=== PATIENT | female | born 1970 | race Caucasian/White ===

== ENCOUNTER 2018-05-30 11:06 | Emergency (ER) | payer OTHER, SELFPAY ==
[2018-05-30] VITALS (7 sets, daily range): BP systolic 103–135; BP diastolic 65–84; PULSE 57–75; RESP 12–16; TEMP 36.7; O2SAT 95–99; BMI 31.1
--- NOTE | 2018-05-30 11:28 | DI.RAD.S_ITS ---
PROCEDURE: XR CHEST 1V INDICATIONS: chest pain TECHNIQUE: One view of the chest was acquired. COMPARISON: [facility], , CHEST 2VW, 09/26/2008, 2:32. FINDINGS: Surgical changes and devices: None. Lungs and pleura: Lungs are clear. No pleural effusions or pneumothorax. Mediastinum: Mediastinal contours appear normal. Heart size is normal. Bones and chest wall: No suspicious bony lesions. Overlying soft tissues appear unremarkable. IMPRESSION: Stable chest. No acute cardiopulmonary process is evident. Dictated by: Dmitriy Sanchez M.D. on 05/30/2018 at 10:44 Approved by: Dmitriy Sanchez M.D. on 05/30/2018 at 10:44
[2018-05-30 11:40] LABS: Prothrombin Time 11.7 SECONDS (10.1-12.7)
[2018-05-30 11:43] LABS: PTT Partial Thromboplastin Tim 33 SECONDS (26.4-36.2)
[2018-05-30 11:44] LABS: Alanine Aminotransferase 42 IU/L (9-52); Albumin 4.6 g/dL (3.5-5.0); Albumin Globulin Ratio 1.3 (1.0-2.8); Alkaline Phosphatase 109 U/L (38-126); Aspartate Aminotransferase 38 IU/L (14-36); BUN Creatinine Ratio 17.3 (6-22); Bilirubin Total 0.4 mg/dL (0.2-1.3); Blood Urea Nitrogen 19 mg/dL (7-17); Calcium 9.6 mg/dL (8.4-10.2); Carbon Dioxide 28 mmol/L (22-32); Chloride 103 mmol/L (98-107); Creatine Kinase 89 U/L (30-135); Estimated Glomerular Filt Rate 52.8 mL/min (>60); Globulin 3.5 g/dL (1.7-4.1); Glucose 107 mg/dL (70-100); HEMOLYSIS 27 (0-50); Lipase 75 U/L (23-300); Sodium 139 mmol/L (137-145); Total Protein 8.1 g/dL (6.3-8.2)
[2018-05-30 11:50] LABS: Add Manual Diff / Slide Review NO; Basophils Absolute Auto 0 /uL (0-100); Basophils Percent Auto 0.7 % (0-2); Eosinophils Absolute Auto 200 /uL (0-450); Eosinophils Percent Auto 2.3 % (2-4); Hematocrit 38.3 % (36-46); Hemoglobin 12.8 g/dL (12.0-16.0); Lymphocytes Absolute Auto 2100 /uL (1100-4500); Lymphocytes Percent Auto 30.7 % (25-40); Mean Corpuscular HGB Conc 33.4 % (30-36); Mean Corpuscular Hemoglobin 30.7 PG (26-34); Monocytes Absolute Auto 600 /uL (0-900); Monocytes Percent Auto 8.4 % (3-14); Neutrophils Absolute Auto 4000 /uL (1500-7000); Neutrophils Percent Auto 57.9 % (50-75); Platelet Count 325 X10^3/uL (150-400); Red Blood Cell Count 4.16 X10^6/uL (4.0-5.2); Red Cell Distribution Width 13.8 % (11.6-14.8); White Blood Cell Count 6.9 X10^3/uL (4.5-11.0)
[2018-05-30 11:55] LABS: Troponin I < 0.012 ng/mL (0.01-0.034)
--- NOTE | 2018-05-30 12:09 | ED.CHESTPAIN ---
HPI - Chest Pain <TORRES Davis - Last Filed: 05/30/18 21:19> General Chief Complaint: Chest Pain Stated Complaint: chest pain on left side / back pain Time Seen by Provider: 05/30/18 12:07 Source: patient Mode of arrival: ambulatory Limitations: no limitations History of Present Illness HPI narrative: 47-year-old female with history of epilepsy and is a nonsmoker for complaint having a chest pain into her left anterior chest that radiated into her left ribcage area started earlier this morning. She denies any nausea or vomiting. No diaphoresis. She denies any history of cardiac problems. She reports that she feels better at this time frame that she did earlier today. Pain is reproducible with palpation to the area. She does report that she had a good work out. Two days ago where she was doing P 90 x. no trauma to the area. No shortness of breath she is able speak full sentences. No other concerns or complaints at this time frame. complaint: chest pain Related Data Allergies Allergy/AdvReac Type Severity Reaction Status Date / Time No Known Drug Allergies Allergy Verified 05/30/18 11:16 Review of Systems <TORRES Davis - Last Filed: 05/30/18 21:19> Constitutional Denies chills, Denies fever(s), Denies lethargy and Denies weakness Eyes Denies change in vision, Denies eye discharge, Denies irritation and Denies loss of vision ENT Ears, Nose, Mouth, and Throat: Denies change in voice, Denies neck pain and Denies sore throat Cardiovascular Reports chest pain, Denies dyspnea and Denies dyspnea on exertion Respiratory Denies cough, Denies dyspnea, Denies dyspnea on exertion and Denies wheezing Gastrointestinal Gastrointestinal: Denies abdominal pain, Denies change in bowel habits, Denies diarrhea, Denies nausea and Denies vomiting Musculoskeletal Denies neck pain Integumentary/Breasts Denies pruritus, Denies erythema, Denies rash and Denies wounds Neurologic Denies confusion, Denies loss of vision and Denies weakness Psychiatric Denies anxiety, Denies confusion, Denies depression, Denies homicidal ideation and Denies suicidal ideation Hematologic/Lymphatic Denies easy bruising Allergic/Immunologic Denies wheezing Exam <TORRES Davis - Last Filed: 05/30/18 21:19> Initial Vital Signs Initial Vital Signs: Vital Signs Temperature 98.0 F 05/30/18 11:16 Pulse Rate 75 05/30/18 11:16 Respiratory Rate 16 05/30/18 11:16 Blood Pressure 135/70 05/30/18 11:16 Pulse Oximetry 95 05/30/18 11:16 Const General: cooperative and well developed Nutritional Appearance: well nourished Orientation: alert, awake, oriented x3 and not confused HENMT Mouth: oral mucosae normal and moist mucous membranes Eyes Conjunctivae: conjunctivae normal Sclera: sclerae normal Pupils: PERRL EOM: EOM intact bilaterally Chest Chest: normal inspection of the chest Other: Pain on palpation to anterior chest wall and into left lateral rib cage area. No signs of trauma. Resp Effort & Inspection: normal respiratory effort, able to speak in complete sentences, no respiratory distress and no use of accessory muscles Auscultation: clear to auscultation bilaterally, no rales, no rhonchi and no wheezes Cardio Rate: regular rate Rhythm: regular rhythm Heart Sounds: no click, no gallops, no murmurs and no rubs Skin General: no rashes or lesions noted, No jaundice and No petechiae Neuro General: alert, oriented x3, gait normal and no focal motor deficits Speech: speech normal <Adele Hinton DO - Last Filed: 06/02/18 07:15> Initial Vital Signs Initial Vital Signs: Vital Signs Temperature 98.0 F 05/30/18 11:16 Pulse Rate 75 05/30/18 11:16 Respiratory Rate 16 05/30/18 11:16 Blood Pressure 135/70 05/30/18 11:16 Pulse Oximetry 95 05/30/18 11:16 Course <TORRES Davis - Last Filed: 05/30/18 21:19> Orders Ordered: ED Orders 05/30/18 12:48 Urine Culture Stat Urine Microscopic Stat 05/30/18 13:30 Trop I [Troponin I] Stat Vital Signs - 8 hr 05/30/18 13:30 05/30/18 14:00 05/30/18 14:30 Pulse Rate 59 L 58 L 57 L Respiratory Rate 14 14 16 Blood Pressure [Left Arm] 127/84 105/75 103/65 Pulse Oximetry 96 98 97 <Adele Hinton DO - Last Filed: 06/02/18 07:15> Orders Ordered: ED Orders 05/30/18 12:48 Urine Culture Stat Urine Microscopic Stat 05/30/18 13:30 Trop I [Troponin I] Stat Vital Signs - 8 hr 05/30/18 13:30 05/30/18 14:00 05/30/18 14:30 Pulse Rate 59 L 58 L 57 L Respiratory Rate 14 14 16 Blood Pressure [Left Arm] 127/84 105/75 103/65 Pulse Oximetry 96 98 97 MDM - Chest Pain <TORRES Davis - Last Filed: 05/30/18 21:19> Lab Data Result diagrams: 05/30/18 11:30 05/30/18 11:30 Lab Results 05/30/18 05/30/18 05/30/18 Range/Units 11:30 11:30 11:30 WBC 6.9 (4.5-11.0) X10^3/uL RBC 4.16 (4.0-5.2) X10^6/uL Hgb 12.8 (12.0-16.0) g/dL Hct 38.3 (36-46) % MCV 92.0 (80-100) fL MCH 30.7 (26-34) PG MCHC 33.4 (30-36) % RDW 13.8 (11.6-14.8) % Plt Count 325 (150-400) X10^3/uL Neut % (Auto) 57.9 (50-75) % Lymph % (Auto) 30.7 (25-40) % Cedar % (Auto) 8.4 (3-14) % Eos % (Auto) 2.3 (2-4) % Baso % (Auto) 0.7 (0-2) % Neut # (Auto) 4000 (0228-1402) /uL Lymph # (Auto) 2100 (5441-8636) /uL Cedar # (Auto) 600 (0-900) /uL Eos # (Auto) 200 (0-450) /uL Baso # (Auto) 0 (0-100) /uL PT 11.7 (10.1-12.7) SECONDS INR 1.0 (0.9-1.3) APTT 33 (26.4-36.2) SECONDS D-Dimer (<230) ng/mL Sodium 139 (137-145) mmol/L Potassium 4.0 (3.4-5.1) mmol/L Chloride 103 (98-107) mmol/L Carbon Dioxide 28 (22-32) mmol/L BUN 19 H (7-17) mg/dL Creatinine 1.10 H (0.52-1.04) mg/dL Estimated GFR 52.8 L (>60) mL/min BUN/Creatinine Ratio 17.3 (6-22) Glucose 107 H (70-100) mg/dL Calcium 9.6 (8.4-10.2) mg/dL Total Bilirubin 0.4 (0.2-1.3) mg/dL AST 38 H (14-36) IU/L ALT 42 (9-52) IU/L Alkaline Phosphatase 109 (38-126) U/L Total Creatine Kinase 89 (30-135) U/L CK-MB (CK-2) TNP CK-MB (CK-2) Rel Index TNP Troponin I < 0.012 (0.01-0.034) ng/mL Total Protein 8.1 (6.3-8.2) g/dL Albumin 4.6 (3.5-5.0) g/dL Globulin 3.5 (1.7-4.1) g/dL Albumin/Globulin Ratio 1.3 (1.0-2.8) Lipase 75 (23-300) U/L Urine RBC (0-5/HPF) Urine WBC (0-5/HPF) Ur Squamous Epith Cells Amorphous Sediment Urine Bacteria (None) Ur Culture Indicated? 05/30/18 05/30/18 05/30/18 Range/Units 11:32 12:48 13:30 WBC (4.5-11.0) X10^3/uL RBC (4.0-5.2) X10^6/uL Hgb (12.0-16.0) g/dL Hct (36-46) % MCV (80-100) fL MCH (26-34) PG MCHC (30-36) % RDW (11.6-14.8) % Plt Count (150-400) X10^3/uL Neut % (Auto) (50-75) % Lymph % (Auto) (25-40) % Cedar % (Auto) (3-14) % Eos % (Auto) (2-4) % Baso % (Auto) (0-2) % Neut # (Auto) (2303-4983) /uL Lymph # (Auto) (0901-5207) /uL Cedar # (Auto) (0-900) /uL Eos # (Auto) (0-450) /uL Baso # (Auto) (0-100) /uL PT (10.1-12.7) SECONDS INR (0.9-1.3) APTT (26.4-36.2) SECONDS D-Dimer 298 H (<230) ng/mL Sodium (137-145) mmol/L Potassium (3.4-5.1) mmol/L Chloride (98-107) mmol/L Carbon Dioxide (22-32) mmol/L BUN (7-17) mg/dL Creatinine (0.52-1.04) mg/dL Estimated GFR (>60) mL/min BUN/Creatinine Ratio (6-22) Glucose (70-100) mg/dL Calcium (8.4-10.2) mg/dL Total Bilirubin (0.2-1.3) mg/dL AST (14-36) IU/L ALT (9-52) IU/L Alkaline Phosphatase (38-126) U/L Total Creatine Kinase (30-135) U/L CK-MB (CK-2) CK-MB (CK-2) Rel Index Troponin I < 0.012 (0.01-0.034) ng/mL Total Protein (6.3-8.2) g/dL Albumin (3.5-5.0) g/dL Globulin (1.7-4.1) g/dL Albumin/Globulin Ratio (1.0-2.8) Lipase (23-300) U/L Urine RBC None seen (0-5/HPF) Urine WBC 1-5/hpf (0-5/HPF) Ur Squamous Epith Cells 1-5 /hpf Amorphous Sediment 2+ Urine Bacteria None seen (None) Ur Culture Indicated? Specimen cultured Point of Care Testing Test Results Negative Urine Dip Bedside Urine Glucose Negative Bedside Urine Bilirubin - Negative Bedside Urine Ketone - Negative Urine Specific [place] 1.025 Bedside Urine Occult Blood - Negative Bedside Urine pH 5.5 Bedside Urine Protein - Negative Bedside Urine Urobilinogen - Negative Bedside Urine Nitrite - Negative Bedside Urine Leukocytes ++ 125 Esterase Imaging Data Chest x-ray: Radiologist's impression: [address] [address] XRay Report Signed Patient: Gabriela Castro#: [id number] : 1970Acct:[id number] Age/Sex: 47 / FDate of Service: 05/30/18 Loc: ED Accession Number: [id number] Procedure: XR chest 1V Ordering Provider: Adele Hinton D.O. PROCEDURE: XR CHEST 1V INDICATIONS: chest pain TECHNIQUE: One view of the chest was acquired. COMPARISON: [facility], , CHEST 2VW, 09/26/2008, 2:32. FINDINGS: Surgical changes and devices: None. Lungs and pleura: Lungs are clear. No pleural effusions or pneumothorax. Mediastinum: Mediastinal contours appear normal. Heart size is normal. Bones and chest wall: No suspicious bony lesions. Overlying soft tissues appear unremarkable. IMPRESSION: Stable chest. No acute cardiopulmonary process is evident. Dictated by: Dmitriy Sanchez M.D. on 05/30/2018 at 10:44 Approved by: Dmitriy Sanchez M.D. on 05/30/2018 at 10:44 ECG Data Interpretation: EKG shows normal sinus rhythm with no ST elevation or depression. No ectopy. Ventricular rate of 61. Pr interval 144. QRS duration 93. QTC of 404. MDM Narrative Medical decision making narrative: CBC was obtained and was unremarkable. Chem panel shows GFR 52.8 and creatinine at 1.1. Patient states that this is not a new finding for her. Otherwise CMP was unremarkable. EKG shows sinus rhythm with no ST elevation or depression. No ectopy. Chest x-ray was obtained was unremarkable. two sets of cardiac enzymes were obtained and were both negative. Pain is reproducible on palpation to the chest wall. Signs and symptoms presents as chest wall pain. Rest area. She is instructed not to do any strenuous activity until pain resolves. [id number] ibuprofen as needed for any discomfort. Follow up with primary care provider. Return emergency room for any worsening symptoms. <Adele Hinton DO - Last Filed: 06/02/18 07:15> Lab Data Lab Results 05/30/18 05/30/18 05/30/18 Range/Units 11:30 11:30 11:30 WBC 6.9 (4.5-11.0) X10^3/uL RBC 4.16 (4.0-5.2) X10^6/uL Hgb 12.8 (12.0-16.0) g/dL Hct 38.3 (36-46) % MCV 92.0 (80-100) fL MCH 30.7 (26-34) PG MCHC 33.4 (30-36) % RDW 13.8 (11.6-14.8) % Plt Count 325 (150-400) X10^3/uL Neut % (Auto) 57.9 (50-75) % Lymph % (Auto) 30.7 (25-40) % Cedar % (Auto) 8.4 (3-14) % Eos % (Auto) 2.3 (2-4) % Baso % (Auto) 0.7 (0-2) % Neut # (Auto) 4000 (5006-5533) /uL Lymph # (Auto) 2100 (5345-0957) /uL Cedar # (Auto) 600 (0-900) /uL Eos # (Auto) 200 (0-450) /uL Baso # (Auto) 0 (0-100) /uL PT 11.7 (10.1-12.7) SECONDS INR 1.0 (0.9-1.3) APTT 33 (26.4-36.2) SECONDS D-Dimer (<230) ng/mL Sodium 139 (137-145) mmol/L Potassium 4.0 (3.4-5.1) mmol/L Chloride 103 (98-107) mmol/L Carbon Dioxide 28 (22-32) mmol/L BUN 19 H (7-17) mg/dL Creatinine 1.10 H (0.52-1.04) mg/dL Estimated GFR 52.8 L (>60) mL/min BUN/Creatinine Ratio 17.3 (6-22) Glucose 107 H (70-100) mg/dL Calcium 9.6 (8.4-10.2) mg/dL Total Bilirubin 0.4 (0.2-1.3) mg/dL AST 38 H (14-36) IU/L ALT 42 (9-52) IU/L Alkaline Phosphatase 109 (38-126) U/L Total Creatine Kinase 89 (30-135) U/L CK-MB (CK-2) TNP CK-MB (CK-2) Rel Index TNP Troponin I < 0.012 (0.01-0.034) ng/mL Total Protein 8.1 (6.3-8.2) g/dL Albumin 4.6 (3.5-5.0) g/dL Globulin 3.5 (1.7-4.1) g/dL Albumin/Globulin Ratio 1.3 (1.0-2.8) Lipase 75 (23-300) U/L Urine RBC (0-5/HPF) Urine WBC (0-5/HPF) Ur Squamous Epith Cells Amorphous Sediment Urine Bacteria (None) Ur Culture Indicated? 05/30/18 05/30/18 05/30/18 Range/Units 11:32 12:48 13:30 WBC (4.5-11.0) X10^3/uL RBC (4.0-5.2) X10^6/uL Hgb (12.0-16.0) g/dL Hct (36-46) % MCV (80-100) fL MCH (26-34) PG MCHC (30-36) % RDW (11.6-14.8) % Plt Count (150-400) X10^3/uL Neut % (Auto) (50-75) % Lymph % (Auto) (25-40) % Cedar % (Auto) (3-14) % Eos % (Auto) (2-4) % Baso % (Auto) (0-2) % Neut # (Auto) (1794-4155) /uL Lymph # (Auto) (9315-7475) /uL Cedar # (Auto) (0-900) /uL Eos # (Auto) (0-450) /uL Baso # (Auto) (0-100) /uL PT (10.1-12.7) SECONDS INR (0.9-1.3) APTT (26.4-36.2) SECONDS D-Dimer 298 H (<230) ng/mL Sodium (137-145) mmol/L Potassium (3.4-5.1) mmol/L Chloride (98-107) mmol/L Carbon Dioxide (22-32) mmol/L BUN (7-17) mg/dL Creatinine (0.52-1.04) mg/dL Estimated GFR (>60) mL/min BUN/Creatinine Ratio (6-22) Glucose (70-100) mg/dL Calcium (8.4-10.2) mg/dL Total Bilirubin (0.2-1.3) mg/dL AST (14-36) IU/L ALT (9-52) IU/L Alkaline Phosphatase (38-126) U/L Total Creatine Kinase (30-135) U/L CK-MB (CK-2) CK-MB (CK-2) Rel Index Troponin I < 0.012 (0.01-0.034) ng/mL Total Protein (6.3-8.2) g/dL Albumin (3.5-5.0) g/dL Globulin (1.7-4.1) g/dL Albumin/Globulin Ratio (1.0-2.8) Lipase (23-300) U/L Urine RBC None seen (0-5/HPF) Urine WBC 1-5/hpf (0-5/HPF) Ur Squamous Epith Cells 1-5 /hpf Amorphous Sediment 2+ Urine Bacteria None seen (None) Ur Culture Indicated? Specimen cultured Point of Care Testing Test Results Negative Urine Dip Bedside Urine Glucose Negative Bedside Urine Bilirubin - Negative Bedside Urine Ketone - Negative Urine Specific [place] 1.025 Bedside Urine Occult Blood - Negative Bedside Urine pH 5.5 Bedside Urine Protein - Negative Bedside Urine Urobilinogen - Negative Bedside Urine Nitrite - Negative Bedside Urine Leukocytes ++ 125 Esterase Discharge Plan Departure Patient Disposition: Home Clinical Impression: Anterior chest wall pain Discharge Date/Time: 05/30/18 14:54 Interventions: ED Discharge Assessment Last Done: 05/30/18 14:54 Instructions: DI for Atypical Chest Pain Activity Restrictions/Additional Instructions: Laboratory results imaging and EKG today were unremarkable. signs and symptoms presents as chest wall muscular pain. Rest area. No strenuous activity to area until pain is resolved. Gentle [id number] exercises to painful areas to help keep muscles loose. Follow up with her primary care provider. Return emergency room for any worsening symptoms. Referrals: [facility] [Provider Group] <Adele Hinton DO - Last Filed: 06/02/18 07:15> Cosign ED Attending Cosignature Attestation: I was immediately available in the department for consultation. This documentation has been reviewed. Supervised by Adele Hinton DO
[2018-05-30 12:35] LABS: D Dimer 298 ng/mL (<230)
[2018-05-30 12:49] LABS: Bacteria Urine None Seen; RBC Urine None Seen (0-5/HPF)
[2018-05-30 13:04] LABS: Squamous Epithelial Cell Urine 1-5 /HPF; WBC Urine 1-5/HPF (0-5/HPF)
[2018-05-30 13:05] LABS: Amorphous Sediment Urine 2+; Culture Indicated Urine Specimen Cultured
[2018-05-30 14:10] LABS: Troponin I < 0.012 ng/mL (0.01-0.034)
--- NOTE | 2018-05-30 14:28 | ED_ITS ---
HPI - Chest Pain <TORRES Davis - Last Filed: 05/30/18 21:19> General Chief Complaint: Chest Pain Stated Complaint: chest pain on left side / back pain Time Seen by Provider: 05/30/18 12:07 Source: patient Mode of arrival: ambulatory Limitations: no limitations History of Present Illness HPI narrative: 47-year-old female with history of epilepsy and is a nonsmoker for complaint having a chest pain into her left anterior chest that radiated into her left ribcage area started earlier this morning. She denies any nausea or vomiting. No diaphoresis. She denies any history of cardiac problems. She reports that she feels better at this time frame that she did earlier today. Pain is reproducible with palpation to the area. She does report that she had a good work out. Two days ago where she was doing P 90 x. no trauma to the area. No shortness of breath she is able speak full sentences. No other concerns or complaints at this time frame. complaint: chest pain Related Data Allergies Allergy/AdvReac Type Severity Reaction Status Date / Time No Known Drug Allergies Allergy Verified 05/30/18 11:16 Review of Systems <TORRES Davis - Last Filed: 05/30/18 21:19> Constitutional Denies chills, Denies fever(s), Denies lethargy and Denies weakness Eyes Denies change in vision, Denies eye discharge, Denies irritation and Denies loss of vision ENT Ears, Nose, Mouth, and Throat: Denies change in voice, Denies neck pain and Denies sore throat Cardiovascular Reports chest pain, Denies dyspnea and Denies dyspnea on exertion Respiratory Denies cough, Denies dyspnea, Denies dyspnea on exertion and Denies wheezing Gastrointestinal Gastrointestinal: Denies abdominal pain, Denies change in bowel habits, Denies diarrhea, Denies nausea and Denies vomiting Musculoskeletal Denies neck pain Integumentary/Breasts Denies pruritus, Denies erythema, Denies rash and Denies wounds Neurologic Denies confusion, Denies loss of vision and Denies weakness Psychiatric Denies anxiety, Denies confusion, Denies depression, Denies homicidal ideation and Denies suicidal ideation Hematologic/Lymphatic Denies easy bruising Allergic/Immunologic Denies wheezing Exam <TORRES Davis - Last Filed: 05/30/18 21:19> Initial Vital Signs Initial Vital Signs: Vital Signs Temperature 98.0 F 05/30/18 11:16 Pulse Rate 75 05/30/18 11:16 Respiratory Rate 16 05/30/18 11:16 Blood Pressure 135/70 05/30/18 11:16 Pulse Oximetry 95 05/30/18 11:16 Const General: cooperative and well developed Nutritional Appearance: well nourished Orientation: alert, awake, oriented x3 and not confused HENMT Mouth: oral mucosae normal and moist mucous membranes Eyes Conjunctivae: conjunctivae normal Sclera: sclerae normal Pupils: PERRL EOM: EOM intact bilaterally Chest Chest: normal inspection of the chest Other: Pain on palpation to anterior chest wall and into left lateral rib cage area. No signs of trauma. Resp Effort & Inspection: normal respiratory effort, able to speak in complete sentences, no respiratory distress and no use of accessory muscles Auscultation: clear to auscultation bilaterally, no rales, no rhonchi and no wheezes Cardio Rate: regular rate Rhythm: regular rhythm Heart Sounds: no click, no gallops, no murmurs and no rubs Skin General: no rashes or lesions noted, No jaundice and No petechiae Neuro General: alert, oriented x3, gait normal and no focal motor deficits Speech: speech normal <Adele Hinton DO - Last Filed: 06/02/18 07:15> Initial Vital Signs Initial Vital Signs: Vital Signs Temperature 98.0 F 05/30/18 11:16 Pulse Rate 75 05/30/18 11:16 Respiratory Rate 16 05/30/18 11:16 Blood Pressure 135/70 05/30/18 11:16 Pulse Oximetry 95 05/30/18 11:16 Course <TORRES Davis - Last Filed: 05/30/18 21:19> Orders Ordered: ED Orders 05/30/18 12:48 Urine Culture Stat Urine Microscopic Stat 05/30/18 13:30 Trop I [Troponin I] Stat Vital Signs - 8 hr 05/30/18 13:30 05/30/18 14:00 05/30/18 14:30 Pulse Rate 59 L 58 L 57 L Respiratory Rate 14 14 16 Blood Pressure [Left Arm] 127/84 105/75 103/65 Pulse Oximetry 96 98 97 <Adele Hinton DO - Last Filed: 06/02/18 07:15> Orders Ordered: ED Orders 05/30/18 12:48 Urine Culture Stat Urine Microscopic Stat 05/30/18 13:30 Trop I [Troponin I] Stat Vital Signs - 8 hr 05/30/18 13:30 05/30/18 14:00 05/30/18 14:30 Pulse Rate 59 L 58 L 57 L Respiratory Rate 14 14 16 Blood Pressure [Left Arm] 127/84 105/75 103/65 Pulse Oximetry 96 98 97 MDM - Chest Pain <TORRES Davis - Last Filed: 05/30/18 21:19> Lab Data Result diagrams: 05/30/18 11:30 05/30/18 11:30 Lab Results 05/30/18 05/30/18 05/30/18 Range/Units 11:30 11:30 11:30 WBC 6.9 (4.5-11.0) X10^3/uL RBC 4.16 (4.0-5.2) X10^6/uL Hgb 12.8 (12.0-16.0) g/dL Hct 38.3 (36-46) % MCV 92.0 (80-100) fL MCH 30.7 (26-34) PG MCHC 33.4 (30-36) % RDW 13.8 (11.6-14.8) % Plt Count 325 (150-400) X10^3/uL Neut % (Auto) 57.9 (50-75) % Lymph % (Auto) 30.7 (25-40) % [place] % (Auto) 8.4 (3-14) % Eos % (Auto) 2.3 (2-4) % Baso % (Auto) 0.7 (0-2) % Neut # (Auto) 4000 (7110-7550) /uL Lymph # (Auto) 2100 (5748-1404) /uL [place] # (Auto) 600 (0-900) /uL Eos # (Auto) 200 (0-450) /uL Baso # (Auto) 0 (0-100) /uL PT 11.7 (10.1-12.7) SECONDS INR 1.0 (0.9-1.3) APTT 33 (26.4-36.2) SECONDS D-Dimer (<230) ng/mL Sodium 139 (137-145) mmol/L Potassium 4.0 (3.4-5.1) mmol/L Chloride 103 (98-107) mmol/L Carbon Dioxide 28 (22-32) mmol/L BUN 19 H (7-17) mg/dL Creatinine 1.10 H (0.52-1.04) mg/dL Estimated GFR 52.8 L (>60) mL/min BUN/Creatinine Ratio 17.3 (6-22) Glucose 107 H (70-100) mg/dL Calcium 9.6 (8.4-10.2) mg/dL Total Bilirubin 0.4 (0.2-1.3) mg/dL AST 38 H (14-36) IU/L ALT 42 (9-52) IU/L Alkaline Phosphatase 109 (38-126) U/L Total Creatine Kinase 89 (30-135) U/L CK-MB (CK-2) TNP CK-MB (CK-2) Rel Index TNP Troponin I < 0.012 (0.01-0.034) ng/mL Total Protein 8.1 (6.3-8.2) g/dL Albumin 4.6 (3.5-5.0) g/dL Globulin 3.5 (1.7-4.1) g/dL Albumin/Globulin Ratio 1.3 (1.0-2.8) Lipase 75 (23-300) U/L Urine RBC (0-5/HPF) Urine WBC (0-5/HPF) Ur Squamous Epith Cells Amorphous Sediment Urine Bacteria (None) Ur Culture Indicated? 05/30/18 05/30/18 05/30/18 Range/Units 11:32 12:48 13:30 WBC (4.5-11.0) X10^3/uL RBC (4.0-5.2) X10^6/uL Hgb (12.0-16.0) g/dL Hct (36-46) % MCV (80-100) fL MCH (26-34) PG MCHC (30-36) % RDW (11.6-14.8) % Plt Count (150-400) X10^3/uL Neut % (Auto) (50-75) % Lymph % (Auto) (25-40) % [place] % (Auto) (3-14) % Eos % (Auto) (2-4) % Baso % (Auto) (0-2) % Neut # (Auto) (4912-7672) /uL Lymph # (Auto) (2145-4824) /uL [place] # (Auto) (0-900) /uL Eos # (Auto) (0-450) /uL Baso # (Auto) (0-100) /uL PT (10.1-12.7) SECONDS INR (0.9-1.3) APTT (26.4-36.2) SECONDS D-Dimer 298 H (<230) ng/mL Sodium (137-145) mmol/L Potassium (3.4-5.1) mmol/L Chloride (98-107) mmol/L Carbon Dioxide (22-32) mmol/L BUN (7-17) mg/dL Creatinine (0.52-1.04) mg/dL Estimated GFR (>60) mL/min BUN/Creatinine Ratio (6-22) Glucose (70-100) mg/dL Calcium (8.4-10.2) mg/dL Total Bilirubin (0.2-1.3) mg/dL AST (14-36) IU/L ALT (9-52) IU/L Alkaline Phosphatase (38-126) U/L Total Creatine Kinase (30-135) U/L CK-MB (CK-2) CK-MB (CK-2) Rel Index Troponin I < 0.012 (0.01-0.034) ng/mL Total Protein (6.3-8.2) g/dL Albumin (3.5-5.0) g/dL Globulin (1.7-4.1) g/dL Albumin/Globulin Ratio (1.0-2.8) Lipase (23-300) U/L Urine RBC None seen (0-5/HPF) Urine WBC 1-5/hpf (0-5/HPF) Ur Squamous Epith Cells 1-5 /hpf Amorphous Sediment 2+ Urine Bacteria None seen (None) Ur Culture Indicated? Specimen cultured Point of Care Testing Test Results Negative Urine Dip Bedside Urine Glucose Negative Bedside Urine Bilirubin - Negative Bedside Urine Ketone - Negative Urine Specific Newcomb 1.025 Bedside Urine Occult Blood - Negative Bedside Urine pH 5.5 Bedside Urine Protein - Negative Bedside Urine Urobilinogen - Negative Bedside Urine Nitrite - Negative Bedside Urine Leukocytes ++ 125 Esterase Imaging Data Chest x-ray: Radiologist's impression: [address] [id number] XRay Report Signed Patient: Gabriela Castro#: [id number] : 1970Acct:[id number] Age/Sex: 47 / FDate of Service: 05/30/18 Loc: ED Accession Number: [id number] Procedure: XR chest 1V Ordering Provider: Adele Hinton D.O. PROCEDURE: XR CHEST 1V INDICATIONS: chest pain TECHNIQUE: One view of the chest was acquired. COMPARISON: [facility], , CHEST 2VW, 09/26/2008, 2:32. FINDINGS: Surgical changes and devices: None. Lungs and pleura: Lungs are clear. No pleural effusions or pneumothorax. Mediastinum: Mediastinal contours appear normal. Heart size is normal. Bones and chest wall: No suspicious bony lesions. Overlying soft tissues appe ar unremarkable. IMPRESSION: Stable chest. No acute cardiopulmonary process is evident. Dictated by: Dmitriy Sanchez M.D. on 05/30/2018 at 10:44 Approved by: Dmitriy Sanchez M.D. on 05/30/2018 at 10:44 ECG Data Interpretation: EKG shows normal sinus rhythm with no ST elevation or depression. No ectopy. Ventricular rate of 61. Pr interval 144. QRS duration 93. QTC of 404. MDM Narrative Medical decision making narrative: CBC was obtained and was unremarkable. Chem panel shows GFR 52.8 and creatinine at 1.1. Patient states that this is not a new finding for her. Otherwise CMP was unremarkable. EKG shows sinus rhythm with no ST elevation or depression. No ectopy. Chest x-ray was obtained was unremarkable. two sets of cardiac enzymes were obtained and were both negative. Pain is reproducible on palpation to the chest wall. Signs and symptoms presents as chest wall pain. Rest area. She is instructed not to do any strenuous activity until pain resolves. Kvic-[id number] ibuprofen as needed for any discomfort. Follow up with primary care provider. Return emergency room for any worsening symptoms. <Adele Hinton DO - Last Filed: 06/02/18 07:15> Lab Data Lab Results 05/30/18 05/30/18 05/30/18 Range/Units 11:30 11:30 11:30 WBC 6.9 (4.5-11.0) X10^3/uL RBC 4.16 (4.0-5.2) X10^6/uL Hgb 12.8 (12.0-16.0) g/dL Hct 38.3 (36-46) % MCV 92.0 (80-100) fL MCH 30.7 (26-34) PG MCHC 33.4 (30-36) % RDW 13.8 (11.6-14.8) % Plt Count 325 (150-400) X10^3/uL Neut % (Auto) 57.9 (50-75) % Lymph % (Auto) 30.7 (25-40) % [place] % (Auto) 8.4 (3-14) % Eos % (Auto) 2.3 (2-4) % Baso % (Auto) 0.7 (0-2) % Neut # (Auto) 4000 (9839-4466) /uL Lymph # (Auto) 2100 (8002-9700) /uL [place] # (Auto) 600 (0-900) /uL Eos # (Auto) 200 (0-450) /uL Baso # (Auto) 0 (0-100) /uL PT 11.7 (10.1-12.7) SECONDS INR 1.0 (0.9-1.3) APTT 33 (26.4-36.2) SECONDS D-Dimer (<230) ng/mL Sodium 139 (137-145) mmol/L Potassium 4.0 (3.4-5.1) mmol/L Chloride 103 (98-107) mmol/L Carbon Dioxide 28 (22-32) mmol/L BUN 19 H (7-17) mg/dL Creatinine 1.10 H (0.52-1.04) mg/dL Estimated GFR 52.8 L (>60) mL/min BUN/Creatinine Ratio 17.3 (6-22) Glucose 107 H (70-100) mg/dL Calcium 9.6 (8.4-10.2) mg/dL Total Bilirubin 0.4 (0.2-1.3) mg/dL AST 38 H (14-36) IU/L ALT 42 (9-52) IU/L Alkaline Phosphatase 109 (38-126) U/L Total Creatine Kinase 89 (30-135) U/L CK-MB (CK-2) TNP CK-MB (CK-2) Rel Index TNP Troponin I < 0.012 (0.01-0.034) ng/mL Total Protein 8.1 (6.3-8.2) g/dL Albumin 4.6 (3.5-5.0) g/dL Globulin 3.5 (1.7-4.1) g/dL Albumin/Globulin Ratio 1.3 (1.0-2.8) Lipase 75 (23-300) U/L Urine RBC (0-5/HPF) Urine WBC (0-5/HPF) Ur Squamous Epith Cells Amorphous Sediment Urine Bacteria (None) Ur Culture Indicated? 05/30/18 05/30/18 05/30/18 Range/Units 11:32 12:48 13:30 WBC (4.5-11.0) X10^3/uL RBC (4.0-5.2) X10^6/uL Hgb (12.0-16.0) g/dL Hct (36-46) % MCV (80-100) fL MCH (26-34) PG MCHC (30-36) % RDW (11.6-14.8) % Plt Count (150-400) X10^3/uL Neut % (Auto) (50-75) % Lymph % (Auto) (25-40) % [place] % (Auto) (3-14) % Eos % (Auto) (2-4) % Baso % (Auto) (0-2) % Neut # (Auto) (8093-2542) /uL Lymph # (Auto) (0333-3590) /uL [place] # (Auto) (0-900) /uL Eos # (Auto) (0-450) /uL Baso # (Auto) (0-100) /uL PT (10.1-12.7) SECONDS INR (0.9-1.3) APTT (26.4-36.2) SECONDS D-Dimer 298 H (<230) ng/mL Sodium (137-145) mmol/L Potassium (3.4-5.1) mmol/L Chloride (98-107) mmol/L Carbon Dioxide (22-32) mmol/L BUN (7-17) mg/dL Creatinine (0.52-1.04) mg/dL Estimated GFR (>60) mL/min BUN/Creatinine Ratio (6-22) Glucose (70-100) mg/dL Calcium (8.4-10.2) mg/dL Total Bilirubin (0.2-1.3) mg/dL AST (14-36) IU/L ALT (9-52) IU/L Alkaline Phosphatase (38-126) U/L Total Creatine Kinase (30-135) U/L CK-MB (CK-2) CK-MB (CK-2) Rel Index Troponin I < 0.012 (0.01-0.034) ng/mL Total Protein (6.3-8.2) g/dL Albumin (3.5-5.0) g/dL Globulin (1.7-4.1) g/dL Albumin/Globulin Ratio (1.0-2.8) Lipase (23-300) U/L Urine RBC None seen (0-5/HPF) Urine WBC 1-5/hpf (0-5/HPF) Ur Squamous Epith Cells 1-5 /hpf Amorphous Sediment 2+ Urine Bacteria None seen (None) Ur Culture Indicated? Specimen cultured Point of Care Testing Test Results Negative Urine Dip Bedside Urine Glucose Negative Bedside Urine Bilirubin - Negative Bedside Urine Ketone - Negative Urine Specific Newcomb 1.025 Bedside Urine Occult Blood - Negative Bedside Urine pH 5.5 Bedside Urine Protein - Negative Bedside Urine Urobilinogen - Negative Bedside Urine Nitrite - Negative Bedside Urine Leukocytes ++ 125 Esterase Discharge Plan Departure Patient Disposition: Home Clinical Impression: Anterior chest wall pain Discharge Date/Time: 05/30/18 14:54 Interventions: ED Discharge Assessment Last Done: 05/30/18 14:54 Instructions: DI for Atypical Chest Pain Activity Restrictions/Additional Instructions: Laboratory results imaging and EKG today were unremarkable. signs and symptoms presents as chest wall muscular pain. Rest area. No strenuous activity to area until pain is resolved. Gentle qqdod-[id number]-wftnek exercises to painful areas to help keep muscles loose. Follow up with her primary care provider. Return emergency room for any worsening symptoms. Referrals: [facility] [Provider Group] <Adele Hinton DO - Last Filed: 06/02/18 07:15> Cosign ED Attending Cosignature Attestation: I was immediately available in the department for consultation. This documentation has been reviewed. Supervised by Adele Hinton DO
== END 2018-05-30 14:54 | disposition home or self-care (01) ==
PROVIDERS: Emergency Medicine; Emergency Provider Nurse Practitioner Family
DX: R07.89 Other chest pain (principal)
CPT/HCPCS: 36415; 36591; 71045; 80053; 81003; 81015; 81025; 82550; 83690; 84484; 85025; 85379; 85610; 85730; 87086; 93005; 99283; 99285